=== PATIENT | male | born 1930 | race Caucasian/White ===

== ENCOUNTER → 2016-08-29 | Outpatient (CLI) | payer OTHER ==
[~2016-08-29] MED LIST: ADALAT CC60 MG PO; ALL DAY PAIN R220 MG PO; ASPIRIN325 PO; BETAXOLOL HCL20 MG PO; BIAXIN500 MG PO; CEFDINIR300 MG PO; COZAAR 50 MG TA50 M1 PO; FLAGYL500 MG PO; GLIMEPIRIDE4 MG PO; LIPITOR40 MG PO; PRECOSE PO; ZOLOFT50 MG PO
== END ==
LOC: RAD 15:15
DX: R06.89 Other abnormalities of breathing (principal); R63.4 Abnormal weight loss; J44.9 Chronic obstructive pulmonary disease, unspecified

== ENCOUNTER → 2016-09-02 | Outpatient (CLI) | payer OTHER | LOC: ULTRA 09:27 | DX: R63.4 Abnormal weight loss (principal); R10.9 Unspecified abdominal pain ==

== ENCOUNTER 2016-09-03 12:28 | Inpatient (IN) | payer OTHER ==
[~2016-09-03] VITALS: Ht 172.7 cm; Wt 65.7 kg
--- NOTE | ~2016-09-03 | H ---
[facility] [place] [address] HISTORY AND PHYSICAL Name: JEYSON DA SILVA Room #: 217-P [facility] IN M.R.#: [id number] Admission: 09/03/16 Attend Phys: Sandoval Mercedes MD Discharge: 09/10/16 Date of : [birth year] Report #: [id number] THIS REPORT FOR: //name// CC: Hernan Mercedes DATE OF SERVICE: 09/03/2016 CHIEF COMPLAINT: Weakness. HISTORY OF PRESENT ILLNESS: The patient is an 86-year-old male who I have seen in the office over the past week. He is having progressive failure to thrive. He is becoming weaker and having decreased appetite. The son brought him in for further evaluation. We had done an ultrasound as an outpatient recently due to the mild abdominal pain and weakness. That was fairly unremarkable. The patient continued to get worse. He is really not able to give much history. The majority of the history comes from the son. PAST MEDICAL HISTORY: Significant for: 1. Hyperlipidemia. 2. Hypertension. 3. Degenerative arthritis. 4. Depression. MEDICATIONS: As follows: Aspirin 325 mg a day, Naproxen 220 mg b.i.d., Zoloft 50 mg a day, Adalat CC 60 mg a day and atorvastatin 40 mg a day. SOCIAL HISTORY: He lives independently. He is a prior smoker and nondrinker. REVIEW OF SYSTEMS: GENERAL: He is not able to give much, but he denies any fever or chills. HEENT: No headaches or visual changes. CHEST: No chest pain. GASTROINTESTINAL: Mild abdominal pain. No appetite. Early satiety. No diarrhea. GENITOURINARY: No complaints. EXTREMITIES: Just weakness. PHYSICAL EXAMINATION: VITAL SIGNS: His blood pressure is 124/70, his pulse is 89 and respiratory rate is 16. He is afebrile. HEENT: His mucous membranes are very dry. NECK: Supple, without adenopathy, thyromegaly or bruits. CHEST: Shows decreased breath sounds in the bases. CARDIOVASCULAR: Regular rate and rhythm, without murmur. ABDOMEN: Soft. No masses. Bowel sounds are active. He is mildly tender in [address] [address] HISTORY AND PHYSICAL Name: JEYSON DA SILVA Room #: 217-P [facility] IN [facility]#: [id number] Admission: 09/03/16 Attend Phys: Sandoval Mercedes MD Discharge: 09/10/16 Date of : [birth year] Report #: [id number] the upper quadrant. EXTREMITIES: Show no edema. Pulses are intact. SKIN: Intact. Reflexes are intact. DIAGNOSTIC DATA: CT scan of the abdomen was done, which shows a right lower lobe pneumonia, also some gas or distention with some thickening in the distal stomach and constipation. His chest x-ray suggested right lower lobe pneumonia as well. LABORATORY EVALUATION: WBC is 9.3, hemoglobin 11.6, hematocrit 34.1 and platelet count 229,000. Sodium 136, potassium 5.1, chloride 102, bicarbonate 24, BUN 56, creatinine 2.4, glucose 202 and calcium at 8.8. Urinalysis is specific gravity 1.015, protein is trace and blood is 1+. ASSESSMENT: 1. Right lower lobe pneumonia. We will admit, start on Rocephin and Zithromax. 2. Acute kidney injury with dehydration. We will start on IV fluids. 3. Abdominal discomfort with gastric thickening. I have consulted GI. We will start on Protonix and we will ask GI to see for possible endoscopy. We will hold his NSAIDs which may be contributing. <ELECTRONICALLY SIGNED> By: Sandoval Mercedes MD 09/15/16 1250 1300 1442 Sandoval Mercedes MD /nt
--- NOTE | ~2016-09-03 | EKG ---
[address] [address] ELECTROCARDIOGRAM REPORT Name: JEYSON DA SILVA Room #: 217-P ADM IN M.R.#: [id number] Admission: 09/03/16 Attend Phys: Sandoval Mercedes MD Discharge: Date of : [birth year] Report #: [id number] THIS REPORT FOR: //name// [facility] Test Date: 2016-09-03 Test Time: 13:50:29 Pat Name: JEYSON DA SILVA Department: Room: 217 P Gender: M [employer] Operator: Laurent BARBOZA : 1930 Requested By: Sandoval Mercedes Order Number: [id number] MD: Oscar Lopez Measurements Intervals [place] Rate: 78 P: [place]: QRS: -92 QRSD: 137 T: 66 QT: 435 QTc: 496 Interpretive Statements Atrial fibrillation RBBB and LAFB No previous ECG available for comparison Electronically Signed On 09-03-2016 16:31:47 CURB HOP by Oscar Lopez [email or web address] <ELECTRONICALLY SIGNED> By: Oscar Lopez MD 09/03/16 1631 1350 1350 Oscar Lopez MD /REX
--- NOTE | ~2016-09-03 | S ---
[facility] [place] [address] SURGICAL PATH RPT PROCEDURE Name: GIBRAN DOCKERY Room #: 217-P ADM IN M.R.#: [id number] Admission: 09/03/16 Date of : [birth year] Discharge: Report #: [id number] Path Case #: [id number] PATHOLOGY REPORT COLLECTION DATE: 09/05/2016 RECEIVED DATE: 09/05/2016 SUBMITTING PHYS: Dr. Damien Menendez OTHER PHYS: Dr. Hernan Mercedes SPECIMEN(S) RECEIVED: A.Bx gastritis * * * * * * * * * * * * FINAL DIAGNOSIS: Gastric mucosa, gastritis, endoscopic biopsy: - Helicobacter pylori induced moderate active gastritis. - Negative for intestinal metaplasia, dysplasia or atrophy. COMMENT: Helicobacter pylori immunohistochemical stain performed on block A1 positive for organisms. (IUV:csd; d/t: 09/08/2016) PATHOLOGIST: Swathi Ross M.D. REPORT ELECTRONICALLY SIGNED BY: Swathi Ross M.D. DATE/TIME: 09/08/2016 15:22 * * * * * * * * * * * * GROSS PATHOLOGY: Received in formalin labeled "Gibran Dockery and bx gastritis," are 2 segments of morales soft tissue measuring 0.7 x 0.2 x 0.2 cm in aggregate dimensions and measuring 0.3 and 0.4 cm in maximum dimension. The specimen is submitted entirely in cassette A1. (TTL; 09/05/2016) CLINICAL HISTORY: Loss of appetite, weight loss, abdominal pain INITIAL CPT CODE(S): A; 25611, 68001 Professional services performed by [facility] at [facility] [address], [place] [address] [facility] [address] [place] [address] SURGICAL PATH RPT PROCEDURE Name: GIBRAN DOCKERY Room #: 217-P ADM IN .R.#: [id number] Admission: 09/03/16 Date of : [birth year] Discharge: Report #: [id number] Path Case #: [id number] [facility] at [address] [place] [address], [place] [address]. [facility] [address] [place] [address] PHONE: [phone] DIRECTOR: Mckay Ibarra M.D. * * * END OF REPORT * * *
[~2016-09-03 12:28] MED LIST changes: -ALL DAY PAIN R220 MG PO; -BIAXIN500 MG PO; -CEFDINIR300 MG PO; -FLAGYL500 MG PO; -ZOLOFT50 MG PO
[2016-09-03] MEDS ORDERED: ZOLOFT50 MG PO (13:04)
[2016-09-03] MEDS ORDERED: ALL DAY PAIN R220 MG PO (13:06)
[2016-09-03 13:46] VITALS: BP 112/65
[2016-09-03 16:36] LABS: HEMATOCRIT 34.1 % (42.0-52.0); HEMOGLOBIN 11.6 gm/dL (14.0-18.0); MCH 31.9 pg (26.0-34.0); MCHC 34.1 % (28.0-37.0); MCV 93.6 fL (80.0-100.0); RBC 3.65 mil/uL (4.50-6.00); RDW 15.3 % (10.5-14.5); WBC 9.3 thou/uL (4.0-11.0)
[2016-09-03 16:48] LABS: CALCIUM 8.8 mg/dL (8.5-10.1); CREATININE 2.4 mg/dL (0.6-1.3); POTASSIUM 5.1 mmol/L (3.5-5.1)
[2016-09-03 17:30] VITALS: BP 123/62
[2016-09-03 19:15] VITALS: BP 115/58
[2016-09-03 23:31] VITALS: BP 121/66
[2016-09-04 01:20] LABS: URINE BILIRUBIN NEGATIVE (Negative); URINE BLOOD 1+ (Negative); URINE COLOR YELLOW; URINE GLUCOSE-RANDOM* NEGATIVE (Negative); URINE KETONES NEGATIVE (Negative); URINE LEUKOCYTES-REFLEX NEGATIVE (Negative); URINE PROTEIN (DIPSTICK) TRACE (Negative); URINE SPECIFIC GRAVITY 1.015 (1.003-1.035); URINE UROBILINOGEN 0.2 E.U./dl (0.2-1.0)
[2016-09-04 03:36] VITALS: BP 117/67
[2016-09-04 05:35] LABS: CASTS None Seen /LPF (None Seen); CRYSTALS None Seen /LPF (None Seen); SQUAMOUS 0-3 Few /LPF (0-3); URINE WBC-REFLEX 0-5 Rare /HPF (0-5)
[2016-09-04 08:00] VITALS: BP 124/70
[2016-09-04 16:00] VITALS: BP 149/77
[2016-09-04 20:34] VITALS: BP 132/79
[2016-09-05 04:27] LABS: HEMATOCRIT 32.9 % (42.0-52.0); HEMOGLOBIN 10.8 gm/dL (14.0-18.0); MCH 31.6 pg (26.0-34.0); MCHC 32.8 % (28.0-37.0); MCV 96.2 fL (80.0-100.0); RBC 3.42 mil/uL (4.50-6.00); RDW 15.8 % (10.5-14.5); WBC 19.6 thou/uL (4.0-11.0)
[2016-09-05 04:50] LABS: CREATININE 1.8 mg/dL (0.6-1.3); POTASSIUM 4.3 mmol/L (3.5-5.1)
[2016-09-05 04:58] VITALS: BP 162/88
[2016-09-05 05:05] VITALS: BP 171/80
[2016-09-05 09:01] VITALS: BP 153/71
[2016-09-05 10:47] LABS: ALBUMIN 2.2 g/dL (3.4-5.0); DIRECT BILIRUBIN 0.3 mg/dL (<0.1-0.3); TOTAL BILIRUBIN 0.7 mg/dL (<0.1-1.0); TOTAL PROTEIN 5.5 g/dL (6.4-8.2)
[2016-09-05 19:27] VITALS: BP 121/65
[2016-09-06 04:08] VITALS: BP 166/87
[2016-09-06 04:27] LABS: HEMATOCRIT 31.6 % (42.0-52.0); HEMOGLOBIN 10.7 gm/dL (14.0-18.0); MCH 31.9 pg (26.0-34.0); MCHC 33.8 % (28.0-37.0); MCV 94.4 fL (80.0-100.0); PLATELET COUNT 194 thou/uL (150-400); RBC 3.35 mil/uL (4.50-6.00); RDW 15.5 % (10.5-14.5); WBC 10.8 thou/uL (4.0-11.0)
[2016-09-06 04:36] LABS: CALCIUM 7.9 mg/dL (8.5-10.1); CREATININE 1.6 mg/dL (0.6-1.3); POTASSIUM 4.3 mmol/L (3.5-5.1)
[2016-09-06 04:38] LABS: MANUAL DIFF YES
[2016-09-06 07:45] VITALS: BP 171/98
[2016-09-06 09:23] LABS: ABSOLUTE NEUTROPHILS 10.2 thou/uL (1.4-8.2); BURR CELLS 2+; POIKILOCYTOSIS 1+; TOTAL CELL COUNT 100
[2016-09-06 11:10] VITALS: BP 110/65
[2016-09-06 16:15] VITALS: BP 92/45
[2016-09-06 19:05] VITALS: BP 97/51
[2016-09-07 04:16] LABS: HEMATOCRIT 27.6 % (42.0-52.0); HEMOGLOBIN 9.3 gm/dL (14.0-18.0); MCH 32.2 pg (26.0-34.0); MCHC 33.6 % (28.0-37.0); MCV 95.7 fL (80.0-100.0); RBC 2.89 mil/uL (4.50-6.00); RDW 15.7 % (10.5-14.5); WBC 9.7 thou/uL (4.0-11.0)
[2016-09-07 04:42] LABS: CALCIUM 7.9 mg/dL (8.5-10.1); CREATININE 1.7 mg/dL (0.6-1.3); POTASSIUM 3.6 mmol/L (3.5-5.1)
[2016-09-07 05:20] VITALS: BP 137/70
[2016-09-07 07:00] VITALS: BP 139/71
[2016-09-07 12:10] VITALS: BP 87/43
[2016-09-07 16:00] VITALS: BP 122/54
[2016-09-07 20:41] VITALS: BP 101/53
[2016-09-08 04:08] LABS: HEMATOCRIT 27.6 % (42.0-52.0); HEMOGLOBIN 9.4 gm/dL (14.0-18.0); MCH 31.7 pg (26.0-34.0); MCV 93.4 fL (80.0-100.0); RBC 2.95 mil/uL (4.50-6.00); RDW 15.7 % (10.5-14.5); WBC 8.8 thou/uL (4.0-11.0)
[2016-09-08 04:15] LABS: CALCIUM 7.9 mg/dL (8.5-10.1); CREATININE 1.6 mg/dL (0.6-1.3); POTASSIUM 3.7 mmol/L (3.5-5.1)
[2016-09-08 04:30] VITALS: BP 117/68
[2016-09-08 07:13] VITALS: BP 143/83
[2016-09-08 11:15] VITALS: BP 103/61
[2016-09-08 16:21] VITALS: BP 117/65
[2016-09-08 21:02] VITALS: BP 117/56
[2016-09-09 02:53] VITALS: BP 126/61
[2016-09-09 04:53] LABS: CALCIUM 8.1 mg/dL (8.5-10.1); CREATININE 1.6 mg/dL (0.6-1.3); POTASSIUM 4.3 mmol/L (3.5-5.1)
[2016-09-09 07:30] VITALS: BP 145/67
[2016-09-09 12:01] VITALS: BP 103/56
[2016-09-09] MEDS ORDERED: BIAXIN500 MG PO (12:45)
[2016-09-09] MEDS ORDERED: FLAGYL500 MG PO (12:45)
[2016-09-09] MEDS ORDERED: CEFDINIR300 MG PO (12:45)
[2016-09-09 16:27] VITALS: BP 85/46
[2016-09-09 20:37] VITALS: BP 112/68
[2016-09-10 04:58] VITALS: BP 161/88
[2016-09-10 08:40] VITALS: BP 173/95
[2016-09-10 12:20] VITALS: BP 119/71
== END 2016-09-10 18:10 | DRG 177 ==
LOC: 2N 12:28
PROVIDERS: Family Medicine; Internal Medicine
PROC: 0DB68ZX Excision of Stomach, Via Natural or Artificial Opening Endoscopic, Diagnostic (ICD-10-PCS; principal; 2016-09-05)
DX: J69.0 Pneumonitis due to inhalation of food and vomit (principal); E43 Unspecified severe protein-calorie malnutrition; N17.9 Acute kidney failure, unspecified; K26.9 Duodenal ulcer, unspecified as acute or chronic, without hemorrhage or perforation; E78.5 Hyperlipidemia, unspecified; I10 Essential (primary) hypertension; F32.9 Major depressive disorder, single episode, unspecified; M19.90 Unspecified osteoarthritis, unspecified site; E86.0 Dehydration; K29.70 Gastritis, unspecified, without bleeding; E11.9 Type 2 diabetes mellitus without complications; K20.9 Esophagitis, unspecified; K59.00 Constipation, unspecified; Z98.890 Other specified postprocedural states; Z68.22 Body mass index [BMI] 22.0-22.9, adult; Z79.82 Long term (current) use of aspirin; Z79.899 Other long term (current) drug therapy
CPT/HCPCS: 10081; 62110; 62900; 70005